=== PATIENT | male | born 1950 | race Caucasian/White ===

== ENCOUNTER 2023-01-14 22:23 | Emergency (ER) | payer MEDICARE, SELFPAY ==
[2023-01-14 22:39] VITALS: BP 142/75; PULSE 94; RESP 16; TEMP 36.1; O2SAT 98; BMI 24.4
--- NOTE | 2023-01-15 00:07 | ED_ITS ---
HPI - Male Genitourinary General Chief complaint: Urogenital-Male Stated complaint: Urinary retention Time Seen by Provider: 01/15/23 00:01 Source: patient Mode of arrival: ambulatory Limitations: no limitations History of Present Illness HPI Narrative: Patient with BPH complaining of decreased urine output since yesterday today in the morning patient was dribbling but now unable to urinate since afternoon with lower abdominal discomfort no nausea no vomiting no fever no chills patient been having urinary symptoms for last few days with dysuria and frequency no flank pain no fever no chills patient had prostate biopsy about 6 weeks ago Related Data Allergies Allergy/AdvReac Type Severity Reaction Status Date / Time No Known Allergies Allergy Verified 01/15/23 00:16 Review of Systems 2 Review of Systems: Yes all other systems are reviewed and are negative [facility] Social History Social History Advance Directives: No Advance Directives Information Provided: No Physical Exam 2 Vital Signs: Vital Signs: Last Vital Signs Temp 97.6 F 01/15/23 00:10 Pulse 85 01/15/23 00:10 Resp 16 01/15/23 00:10 BP 162/74 H 01/15/23 00:10 Pulse Ox 97 01/15/23 00:10 O2 Del Method Room Air 01/15/23 00:10 BMI result Body Mass Index 24.4 Appearance: Alert. Oriented X3. No acute distress. Eyes: PERRLA, No Nystagmus ENT: Pharynx normal. Oral Mucosa moist Neck: Normal inspection. Neck supple. CVS: Normal heart rate and rhythm. Pulses normal. Respiratory: No respiratory distress. Equal air entry bilateral, no wheezing/rales/rhonchi Abdomen: Soft , fullness suprapubic with slight tenderness no rebound tenderness Bowel sounds are present, no mass palpable, no CVA tenderness rectal: Enlarged prostate nontender Skin: Skin warm and dry. Normal skin color. Normal skin turgor. Extremities: No lower extremity edema. No calf tenderness Neuro: Oriented X 3. No motor deficit. No sensory deficit.No cerebellar signs , cranial nerves II-XII intact Medications Administered Discontinued Medications Generic Name Dose Route Start Last Admin Trade Name Freq PRN Reason Stop Dose Admin Tamsulosin HCl 0.4 mg 01/15/23 00:54 01/15/23 00:58 Tamsulosin Hcl 0.4 Mg Capsule PO 01/15/23 00:55 0.4 mg ONCE ONE Administration Medical Decision Making Medical Decision Making [facility] Narrative: Patient has BPH with retention bladder scan showed more than 396cc urine , Riddle catheter was placed and patient in about 650 cc feeling much better UA negative for UTI will discharge patient home with Riddle catheter patient does take Flomax 0.4 mg daily continue same Differential Diagnosis Differential Diagnoses: The differential diagnosis associated with the presentation includes BPH/UTI/prostatitis Lab Data [facility] Lab Attestation statement: I reviewed the patient's lab results. 01/15/23 00:31 01/15/23 00:31 Labs: Lab Results 01/15/23 Range/Units 00:31 WBC 9.0 (4.8-10.8) X10*3/uL RBC 3.23 L (4.60-5.80) X10*6/uL Hgb 10.4 L (14.0-18.0) g/dl Hct 31.3 L (42.0-52.0) % MCV 96.9 (80.0-98.0) fL MCH 32.2 (27.0-33.0) pg MCHC 33.2 (31.0-36.0) g/dl RDW 12.8 (11.0-16.0) % Plt Count 248 (160-400) X10*3/uL MPV 9.7 (9.4-12.4) fL Immature Gran % (Auto) 0.4 (0.0-0.4) % Neut % (Auto) 68.3 (45-73) % Lymph % (Auto) 20.8 (20-40) % [place] % (Auto) 9.2 (2-11) % Eos % (Auto) 1.0 (0-4) % Baso % (Auto) 0.3 (0-2) % Lymph # (Auto) 1.9 (1.2-4.9) X10*3/uL [place] # (Auto) 0.8 (0.1-1.2) X10*3/uL Eos # (Auto) 0.1 (0.0-0.4) X10*3/uL Baso # (Auto) 0.0 (0.0-0.2) X10*3/uL Abs Immat Gran (auto) 0.04 H (0.00-0.03) X10*3/uL Absolute Neuts (auto) 6.2 (2.0-8.3) x10*3/uL Absolute Nucleated RBC 0.000 (0.0-0.012) X10*3/uL Nucleated RBC % (auto) 0.0 (0.0-0.2) /100WBC Sodium 144 (135-145) mmol/L Potassium 3.7 (3.3-5.1) mmol/L Chloride 106 (96-108) mmol/L Carbon Dioxide 25 (22-29) mmol/L Anion Gap 17 (12-20) BUN 14 (9-16) mg/dL Creatinine 1.07 (0.5-1.4) mg/dL Estim Creat Clear Calc 59.2 Estimated GFR > 60 Random Glucose 105 (60-115) mg/dL Calcium 9.3 (8.4-10.2) mg/dL Total Bilirubin 0.4 (0.0-1.0) mg/dL AST 16 (5-37) U/L ALT 9 (0-40) U/L Alkaline Phosphatase 49 (39-117) U/L Total Protein 6.4 L (6.5-8.0) g/dL Albumin 3.6 (3.5-5.0) g/dL Urine Color Yellow Urine Appearance Clear Urine pH 6.0 (5.0-9.0) Ur Specific [place] 1.015 (1.005-1.025) Urine Protein Trace (Neg-Trace) mg/dL Urine Glucose (UA) Negative (Negative) mg/dL Urine Ketones Negative (Negative) mg/dL Urine Blood Negative (Negative) Urine Nitrite Negative (Negative) Ur Leukocyte Esterase Negative (Negative) Discharge Plan Discharge Clinical Impression: Acute retention of urine, Benign prostatic hyperplasia Patient Disposition: Home, Self-Care Instructions: Urinary Retention in Men (ED), Enlarged Prostate (BPH) (ED), Riddle Catheter Placement and Care (ED) Additional Instructions: Care for Riddle catheter as advised Continue taking Flomax/tamsulosin daily Follow-up with your urologist /PCP next week
[2023-01-15 00:10] VITALS: BP 162/74; PULSE 85; RESP 16; TEMP 36.4; O2SAT 97
--- NOTE | 2023-01-15 00:12 | MHC.EDTECH ---
this pct just assume care of pt , vital was taken ,pt was changed in to hospital attire, bladder scan done, provider Ayaka aware of bladder scan result of 359 ml. provider is in room with pt.
[2023-01-15 00:41] LABS: MANUAL DIFF FLAG NO
[2023-01-15 00:43] LABS: Appearance Urine Clear; Color Urine Yellow; Glucose Urine UA Negative (Negative); Leukocyte Esterase Urine Negative (Negative); Nitrite Urine Negative (Negative); Specific Gravity - Urine 1.015 (1.005-1.025); Urine Blood Negative (Negative); Urine Ketones Negative (Negative); Urine Protein Trace mg/dL (Neg-Trace)
[2023-01-15] MEDS: Tamsulosin HCL 0.4 MG CAPSULE PO (00:58)
[2023-01-15 01:01] LABS: Basophils Percent Auto 0.3 % (0-2); Eosinophils Absolute Auto 0.1 X10*3/uL (0.0-0.4); Hematocrit 31.3 % (42.0-52.0); Hemoglobin 10.4 g/dl (14.0-18.0); Imm Gran Abs Auto 0.04 X10*3/uL (0.00-0.03); Imm Gran Pct Auto 0.4 % (0.0-0.4); Lymphocytes Absolute Auto 1.9 X10*3/uL (1.2-4.9); Lymphocytes Percent Auto 20.8 % (20-40); Mean Corpuscular HGB Conc 33.2 g/dl (31.0-36.0); Mean Corpuscular Hemoglobin 32.2 pg (27.0-33.0); Mean Corpuscular Volume 96.9 fL (80.0-98.0); Mean Platelet Volume 9.7 fL (9.4-12.4); Monocytes Absolute Auto 0.8 X10*3/uL (0.1-1.2); Monocytes Percent Auto 9.2 % (2-11); Neutrophils Absolute Auto 6.2 x10*3/uL (2.0-8.3); Neutrophils Percent Auto 68.3 % (45-73); Platelet Count 248 X10*3/uL (160-400); Red Blood Count 3.23 X10*6/uL (4.60-5.80); Red Cell Distribution Width 12.8 % (11.0-16.0)
[2023-01-15 01:09] LABS: Alanine Aminotransferase 9 U/L (0-40); Albumin Level 3.6 g/dL (3.5-5.0); Alkaline Phosphatase 49 U/L (39-117); Anion Gap 17 (12-20); Aspartate Amino Transferase 16 U/L (5-37); Bilirubin Total 0.4 mg/dL (0.0-1.0); Blood Urea Nitrogen 14 mg/dL (9-16); Calcium 9.3 mg/dL (8.4-10.2); Carbon Dioxide 25 mmol/L (22-29); Chloride 106 mmol/L (96-108); Creatinine Clr Calc Pharmacy 59.2; Estimated Glomerular Filt Rate > 60; Glucose Random 105 mg/dL (60-115); Potassium 3.7 mmol/L (3.3-5.1); Sodium 144 mmol/L (135-145); Total Protein 6.4 g/dL (6.5-8.0)
[2023-01-15 02:00] VITALS: BP 131/78; PULSE 81; RESP 16; TEMP 36.6; O2SAT 98
== END 2023-01-15 02:15 | disposition home or self-care (01) ==
PROVIDERS: Emergency Provider Internal Medicine; PCP Internal Medicine
DX: R33.9 Retention of urine, unspecified (principal); N40.0 Benign prostatic hyperplasia without lower urinary tract symptoms
CPT/HCPCS: 36415; 51702; 80053; 81003; 85025; 99283; 99284